=== PATIENT | male | born 1975 | race Caucasian/White ===

== ENCOUNTER → 2021-04-22 09:02 | Outpatient (CLI) | payer OTHER, SELFPAY ==
[2021-04-22 20:11] LABS: SARS-CoV-2 RNA PCR Negative
== END ==
PROVIDERS: PCP Family Medicine; Visit Provider Family Medicine
DX: R05 Cough (principal); Z20.822 Contact with and (suspected) exposure to COVID-19
CPT/HCPCS: C9803; U0003; U0005

== ENCOUNTER 2024-03-29 17:29 | Emergency (ER) | payer OTHER, SELFPAY ==
[2024-03-29 17:31] VITALS: BP 118/59; PULSE 88; RESP 16; O2SAT 95
--- NOTE | 2024-03-29 17:39 | ED.ALCOHOL ---
HPI - Alcohol General Chief Complaint: Alcohol Stated Complaint: Fall History of Present Illness HPI narrative: 48-year-old male present to the emergency department for evaluation for a near syncopal episode. Patient reports he has been out exposed to the environment and watching baseball games, patient reports he did have some alcohol today and patient reports he also did smoke some THC. Patient states while he was with friends he did did have some lightheaded and dizziness and did feel the need to lay down. Patient's friends state that they did his system to the ground and patient had no fall or injury. EMS was called and due to the patient having hypotension he was transported to the emergency department. Upon arrival to the ED patient denies any complaints. Related Data Allergies Allergy/AdvReac Type Severity Reaction Status Date / Time amphetamine Allergy Unknown unknown Verified 06/05/23 16:25 dextroamphetamine Allergy Unknown unknown Verified 06/05/23 16:25 No Known Allergies Allergy Unverified 06/05/23 16:25 Review of Systems Review of Systems: All systems reviewed & are unremarkable except as noted in HPI and below PMFSH Family History Family History Father Family history of coronary artery disease Social History Social History Smoking status: Never smoker Second hand tobacco smoke exposure: No Alcohol intake: current Substance use: current Substance use type: marijuana Living arrangements: with family Occupation/Education: occupation Gender identity (if verbalized by the patient): Male Sexual Orientation (if Verbalized by the Patient): Straight or Heterosexual Spiritual care concerns: No Exam Narrative: APPEARANCE: Well appearing, no pain, no distress, well-nourished. HEAD: normocephalic, atraumatic. EYES: PERRLA/EOMI, conjunctivae clear. NOSE: Normal no drainage EARS:TMS clear with good light reflex. THROAT: Pharynx clear, no exudate. NECK: Supple. No adenopathy, no masses. RESPIRATORY: Airway patent, respirations nonlabored. Clear to auscultation bilaterally, no rales, rhonchi, wheezing. CARDIOVASCULAR: Regular rate and rhythm without murmurs rubs or gallops. ABDOMINAL: Soft, nontender, nondistended, normal bowel sounds MUSCULOSKELETAL: Moves all extremities. Strength/ROM intact, No edema, No calf tenderness. NEURO: Alert. Cranial nerves II through XII intact. SKIN: Warm, dry. Normal Color Course Course Emergency Course: Patient did feel improved with rehydration, patient was able to ambulate it is baseline. Patient was comfortable with the plan for discharge home with close outpatient follow-up. Vital Signs Vital signs: Vital Signs Pulse Rate 88 03/29/24 17:31 Respiratory Rate 16 03/29/24 17:31 Blood Pressure 118/59 L 03/29/24 17:31 Pulse Oximetry 95 03/29/24 17:31 Oxygen Delivery Room Air 03/29/24 17:31 Pulse Rate 80 03/29/24 19:00 Respiratory Rate 18 03/29/24 19:00 Blood Pressure 125/64 03/29/24 19:00 Pulse Oximetry 100 03/29/24 19:00 Oxygen Delivery Room Air 03/29/24 17:31 MDM - Alcohol MDM Narrative Medical decision making narrative: 48-year-old male presents emergency department for evaluation for near syncopal episode secondary to you exhaustion, alcohol intake and THC use. Patient was afebrile with no leukocytosis and a stable hemoglobin. Patient has no acute abnormalities on his CMP and no ALISHA. EKG showed normal sinus rhythm. Patient did feel improved after rehydration and was able to ambulate in the emergency department without issue. All questions concerns were addressed patient was well-appearing at time of discharge from the emergency department Differential Diagnosis Differential diagnosis: Likely hypomagnesemia, alcohol intoxication and other Lab Data Attestation: I reviewed the patient's lab results.
[2024-03-29] MEDS: SODIUM CHLORIDE 0.9% IV 1,000 ML 999 ML IV CONT (17:43)
--- NOTE | 2024-03-29 17:52 | ECG_ITS ---
Test Date: 2024-03-29 18:24:34 Measurements Intervals [place] Rate: 85 P: 28 WI: 130 QRS: 9 QRSD: 96 T: 6 QT: 389 QTc: 464 Interpretive Statements SINUS RHYTHM BORDERLINE ST-T WAVE ABNORMALITY- INFERIOR LEADS BASELINE ARTIFACT- I, III, AVR, AVL, V2 BORDERLINE ECG No previous ECG available for comparison Electronically Signed On 03-29-2024 19:43:18 CDT by Stoney Muñiz D.O.
[2024-03-29 17:57] LABS: Basophils Percent Auto 0.3 % (0.2-1.2); Eosinophils Absolute Auto 0.1 K/mm3 (0-0.3); Eosinophils Percent Auto 1.7 % (0-4.4); Hematocrit 36.7 % (42.0-52.0); Hemoglobin 12.3 g/dL (14.0-18.0); Immature Granulocyte Absolute 0.02 K/mm3 (0.00-0.031); Immature Granulocyte Percent A 0.3 % (0-0.5); Lymphocytes Absolute Auto 2.34 K/mm3 (0.9-3.2); Mean Corpuscular HGB Conc 33.5 g/dl (32-36); Mean Corpuscular Hemoglobin 30.7 pg (26-34); Mean Corpuscular Volume 91.5 fl (80-100); Mean Platelet Volume 9.2 fl (7.4-10.4); Monocytes Absolute Auto 0.6 K/mm3 (0.1-0.6); Monocytes Percent Auto 9.3 % (2.6-8.5); Neutrophils Absolute Auto 3.3 K/mm3 (1.3-6.7); Neutrophils Percent Auto 51.4 % (45.5-73.1); Platelet Count Result 182 k/mm3 (150-375); Red Blood Count 4.01 M/mm3 (4.6-6.20); Red Cell Distribution Width 12.7 % (11.5-14.5); White Blood Count 6.3 K/mm3 (4.5-10.0)
[2024-03-29 18:01] VITALS: BP 106/45; PULSE 79; RESP 20; O2SAT 94
[2024-03-29 18:06] LABS: Alanine Aminotransferase 20 U/L (6-50); Alkaline Phosphatase 61 U/L (38-126); Anion Gap 11 mmol/L (4-12); Aspartate Amino Transferase 22 U/L (17-59); Bilirubin,Total 0.6 mg/dL (0.2-1.3); Blood Urea Nitrogen 15 mg/dL (9-20); Calcium 8.2 mg/dL (8.4-10.2); Carbon Dioxide 24 mmol/L (22-30); Chloride 103 mmol/L (98-107); Estimated CRCL calculation 125 ml/min; Estimated Glomerular Filt Rate > 60; Glucose 100 mg/dL (65-110); Potassium 3.7 mmol/L (3.4-5.0); Sodium 138 mmol/L (137-145)
[2024-03-29 18:08] LABS: Magnesium 1.9 mg/dL (1.6-2.3)
[2024-03-29 18:31] VITALS: BP 130/65; PULSE 94; RESP 14; O2SAT 98
[2024-03-29 19:00] VITALS: BP 125/64; PULSE 80; RESP 18; O2SAT 100
== END 2024-03-29 19:00 | disposition home or self-care (01) ==
PROVIDERS: Emergency Provider Emergency Medicine; PCP Family Medicine
DX: R55 Syncope and collapse (principal); F10.129 Alcohol abuse with intoxication, unspecified
CPT/HCPCS: 36415; 80053; 83735; 85025; 93005; 96360; 99283; J7030